=== PATIENT | female | born 1950 | race Caucasian/White ===

== ENCOUNTER → 2017-08-05 12:52 | Outpatient (CLI) | payer MEDICARE, OTHER ==
[~2017-08-05 12:52] MED LIST: SYNTHROID112 MCG PO
== END | disposition home or self-care (01) ==
LOC: D.MRI 08:00
DX: M25.511 Pain in right shoulder (principal)

== ENCOUNTER 2017-09-26 06:17 | Day surgery (SDC) | payer MEDICARE, OTHER ==
[~2017-09-26] VITALS: Ht 152.4 cm; Wt 53.5 kg
--- NOTE | ~2017-09-26 | OP ---
PATIENT NAME: MARGI ABBASI MEDICAL RECORD: [id number] :48 LOCATION:[id number] ADMISSION DATE: SURGEON: DAVIAN SANTANA, RASHEED MAY DATE OF OPERATION: 09/26/2017 PREOPERATIVE DIAGNOSES: Impingement syndrome of the right shoulder with rotator cuff tear, biceps tendinitis, acromioclavicular arthritis. POSTOPERATIVE DIAGNOSES: Impingement syndrome of the right shoulder with rotator cuff tear, biceps tendinitis, acromioclavicular arthritis. PROCEDURES: 1. Arthroscopic rotator cuff repair. 2. Arthroscopic biceps tenodesis. 3. Arthroscopic distal clavicle excision done through separate incision -- 1 cm. 4. Arthroscopic subacromial decompression, acromioplasty and bursectomy. SURGEON: Rasheed Marcelo MD ANESTHESIA: General. INTRAOPERATIVE COMPLICATIONS: None. SUMMARY OF PATHOLOGIC FINDINGS: The patient had severe biceps tendinitis, full thickness rotator cuff tearing, type 3 acromion, acromioclavicular arthritis consistent with preoperative MRIs and x-rays as well as physical exam. OPERATIVE SUMMARY IN DETAIL: After obtaining the appropriate preoperative orthopedic surgery consent as well as anesthetic consultation, evaluation and clearance, the patient was brought to the operating room and placed on the operating table in supine position. After general laryngeal mask airway was administered, the patient was placed in left lateral decubitus position. All pressure points well padded to include down leg peroneal pad as well as axillary roll. The patient was held firmly to the operating table using the vacuum pack suction system. Right upper extremity and shoulder were then prepped and draped in a routine sterile fashion. The arm was held in the [employer] traction boom in 30 degrees of forward flexion, 30 degrees of abduction, 10 pounds of traction laterally. Arthroscopy was established in the glenohumeral joint from the posterior portal. Diagnostic arthroscopy showed the patient to have severe biceps tendinitis, full thickness rotator cuff tearing. The labrum and glenohumeral articular surface was in a relatively good condition. Transarthroscopic rotator cuff portal was created. Transrotator cuff tear was created for debridement of the rotator cuff, identification of the further biceps tendinitis as well as mild debridement of the glenohumeral joint. Having completed this, attention was turned to the subacromial space. While in the subacromial space, [place] tissue ablation system was utilized to denude the undersurface of the acromion of all soft tissue elements and release coracoacromial ligament. A 5-0 barrel bur was used to perform acromioplasty at the level of acromioclavicular joint. Done through separate arthroscopic anterior portal, distal clavicle was excised for 1 cm under direct visualization. Next, the biceps tendon was identified and tagged, cut at the bicipital labral junction. Subpec tenodesis was then performed with a small incision at the pectoralis insertion. An 8 mm tenodesis screw was utilized with good fixation and capture the tenodesis screw. Having completed this, attention OPERATIVE REPORT [id number] ABBASIMARGI CALIX was returned to the rotator cuff. Rotator cuff was affixed [id number] with FiberTape using a [id number] suture and the scorpion. This was anchored laterally with a 5.5 SwiveLock from [employer]. Excellent rotator cuff repair was achieved with good smooth surface of the subacromial space. Having completed this, arthroscopy portals were closed in routine interrupted fashion along the small incision for the biceps tenodesis. Sterile dressings were applied. The patient was placed in a brace slingshot splint. She was awakened and taken to the recovery room in stable condition. All final needle and sponge counts were correct. TRANSINT:[id number] Voice Confirmation ID: [id number] DOCUMENT ID: [id number] DAVIAN SANTANA, RASHEED MAY at 1918 CC: [id number] DICTATION DATE: 09/26/17 1033 VOICE OVER ANNOUNCER: 09/26/17 1329 [facility] [address] [id number]
[2017-09-26 06:35] LABS: HEMATOCRIT 39.8 % (36.0-48.0); HEMOGLOBIN 13.6 g/dL (12-16); MCH 30.4 pg (26.0-34.0); MCHC 34.2 g/dL (31.0-37.0); MCV 88.8 fL (80.0-100.0); MEAN PLATELET VOLUME 9.6 fL (7.4-10.4); RBC 4.48 10x6/uL (4.00-5.40); RDW 12.3 % (11.5-14.5); WBC 6.1 10x3/uL (4.8-10.8)
[2017-09-26] MEDS ORDERED: ZPAK PO (07:11)
[2017-09-26 07:18] VITALS: BP 150/64; Ht 152.4 cm; Wt 53.5 kg
[2017-09-26] MEDS ORDERED: HYDROCODONE-APA1 TAB PO (10:29)
== END 2017-09-26 14:15 | disposition home or self-care (01) ==
LOC: D.OPS 06:17 → D.PAN 07:30 → D.OPS 14:15
PROVIDERS: Anesthesiology
DX: M75.41 Impingement syndrome of right shoulder (principal); M75.121 Complete rotator cuff tear or rupture of right shoulder, not specified as traumatic; M75.21 Bicipital tendinitis, right shoulder; M13.811 Other specified arthritis, right shoulder; Z01.812 Encounter for preprocedural laboratory examination